=== PATIENT | female | born 1985 | race Caucasian/White ===

== ENCOUNTER 2023-01-10 15:34 | Emergency (ER) | payer OTHER ==
[2023-01-10] MEDS ORDERED: IBUPROFEN 600 MG TABLET (FP) PO ONE ×2 (15:43→15:52)
[2023-01-10 15:48] VITALS: BP 113/72; PULSE 74; RESP 15; TEMP 97.6; BMI 24.7
== END 2023-01-10 16:48 | disposition home or self-care (01) ==
LOC: FER 15:34
DX: S63.501A Unspecified sprain of right wrist, initial encounter (principal); M25.531 Pain in right wrist; X58.XXXA Exposure to other specified factors, initial encounter; Y93.9 Activity, unspecified; Y92.9 Unspecified place or not applicable
CPT/HCPCS: 73110-TC-RT-FY; 99283-25